=== PATIENT | male | born 1970 | race Caucasian/White ===

== ENCOUNTER 2018-11-25 10:13 | Emergency (ER) | payer OTHER ==
--- NOTE | 2018-11-25 10:47 | EDM.PDOC ---
ED HPI GENERAL MEDICAL PROBLEM - General Chief Complaint: Gastrointestinal Problem Stated Complaint: VOMITING Time Seen by Provider: 11/25/18 10:45 Source of Information: Reports: Patient - History of Present Illness INITIAL COMMENTS - FREE TEXT/NARRATIVE: Patient is here for evaluation of diarrhea x1 week. Patient feels like he should throw up, has had dry heaves. He is unable to vomit due to previous randal fundoplication. Patient states that he does not feel overall ill. He does have diarrhea after every single time that he eats. He has been trying to eat very bland, small portions but this does not change this. Does not have abdominal pain. Denies any fever or chills. Denies any ill contacts. Last week Friday when the symptoms started he did go to a potluck at his 's grandmother's but states nobody else got ill overnight attended in the evening the same things. He has not traveled. He has not had any changes in his diet. Patient has long-standing history of GERD, that is why he had the Christelle fundoplication. History of CAD, hyperlipidemia, hypertension and diabetes as well. Blood sugars have been in the 100-130 range. Patient's primary provider is Vikki Lafleur at the [facility]. Abdomen Pain Score (Numeric/FACES): 4 - Related Data Allergies Allergy/AdvReac Type Severity Reaction Status Date / Time bupropion HCl Allergy itcing Verified 11/25/18 10:34 [From Wellbutrin] doxycycline Allergy itcing Verified 11/25/18 10:34 fenofibrate Allergy Itching Verified 11/25/18 10:34 gemfibrozil Allergy Itching Verified 11/25/18 10:34 lansoprazole [From Prevacid] Allergy Itching Verified 11/25/18 10:34 Penicillins Allergy Hives Verified 11/25/18 10:34 silver sulfadiazine Allergy Itching Verified 11/25/18 10:34 [From Silvadene] venlafaxine Allergy Itching Verified 11/25/18 10:34 zonisamide Allergy Itching Verified 11/25/18 10:34 aquacel Allergy Itching Uncoded 11/25/18 10:34 Home Meds: Home Meds Allopurinol [Zyloprim] 200 mg PO DAILY 04/22/14 [History] Ibuprofen 600 mg PO TID PRN 04/22/14 [History] Insulin Glarg,Human.Rec.Analog [LantUS] 50 unit SQ PCBED 04/22/14 [History] Omeprazole 20 mg PO BID 04/22/14 [History] Tamsulosin [Tamsulosin 24 Hr] 0.4 mg PO BEDTIME 04/22/14 [History] Zolpidem [Ambien] 10 mg PO BEDTIME PRN 04/22/14 [History] metFORMIN [Glucophage] 1,000 mg PO BID 04/22/14 [History] Dicyclomine HCl [Bentyl] 10 mg PO TID PRN 02/18/15 [History] Hydrochlorothiazide/Lisinopril [Lisinopril/HCTZ 20-12.5 MG] 20 mg PO DAILY 02/18 [History] Pregabalin [Lyrica] 100 mg PO BID 02/18/15 [History] Ondansetron [Zofran ODT] 4 mg PO Q8HR PRN 10/23/15 [History] SUMAtriptan succinate [Sumatriptan Succinate] 50 mg PO DAILY 10/23/15 [History] Albuterol Sulfate [Proair Respiclick] 90 mcg INH Q4H PRN 11/25/18 [History] Dulaglutide [Trulicity] 1.5 mg PO DAILY 11/25/18 [History] Lidocaine 5% [Lidoderm 5%] 2 applic TOP DAILY 11/25/18 [History] Metoprolol Succinate [Toprol XL 50mg] 50 mg PO DAILY 11/25/18 [History] Nortriptyline HCl [Pamelor] 50 mg PO DAILY 11/25/18 [History] atorvaSTATin [Lipitor] 40 mg PO DAILY 11/25/18 [History] Past Medical History HEENT History: Reports: Impaired Vision Cardiovascular History: Reports: High Cholesterol, Hypertension, [place] Respiratory History: Reports: Asthma Gastrointestinal History: Reports: GERD Musculoskeletal History: Reports: Gout, Other (See Below) Other Musculoskeletal History: chronic knee pain Neurological History: Reports: Seizure Psychiatric History: Reports: Anxiety Endocrine/Metabolic History: Reports: Diabetes, Type II - Past Surgical History HEENT Surgical History: Reports: Adenoidectomy, Cataract Surgery, Tonsillectomy GI Surgical History: Reports: Cholecystectomy, Other (See Below) Male Surgical History: Reports: Vasectomy Musculoskeletal Surgical History: Reports: Knee Replacement, Other (See Below) Other Musculoskeletal Surgeries/Procedures:: cyst removal left elbow Social & Family History - Family History Family Medical History: Noncontributory - Tobacco Use Smoking Status *Q: Never Smoker Second Hand Smoke Exposure: No - Caffeine Use Caffeine Use: Reports: Soda - Recreational Drug Use Recreational Drug Use: No - Living Situation & Occupation Living situation: Reports: Occupation: Employed ED ROS GENERAL - Review of Systems Review Of Systems: See Below Constitutional: Reports: Decreased Appetite. Denies: Fever, Chills, Weakness, Fatigue HEENT: Reports: No Symptoms Respiratory: Reports: No Symptoms Cardiovascular: Reports: No Symptoms GI/Abdominal: Reports: Diarrhea, Decreased Appetite, Nausea. Denies: Abdominal Pain, Black Stool, Constipation, Hematochezia, Melena, Vomiting : Reports: No Symptoms Musculoskeletal: Reports: No Symptoms Skin: Reports: No Symptoms Neurological: Reports: No Symptoms Psychiatric: Reports: No Symptoms ED EXAM, GI/ABD - Physical Exam Exam: See Below Exam Limited By: No Limitations General Appearance: Alert, WD/WN, No Apparent Distress Ears: Normal External Exam, Normal Canal, Normal TMs Throat/Mouth: Normal Inspection, Normal Lips, Normal Oropharynx Head: Atraumatic, Normocephalic Neck: Normal Inspection, Supple, Non-Tender Respiratory/Chest: No Respiratory Distress, Lungs Clear, Normal Breath Sounds Cardiovascular: Normal Peripheral Pulses, Regular Rate, Rhythm, No Murmur GI/Abdominal Exam: Normal Bowel Sounds, Soft, Tender (Mild RLQ/LLQ tenderness). No: Distended, Guarding, Rigid, Abnormal Bowel Sounds Neurological: Alert, Oriented Psychiatric: Normal Affect, Normal Mood Skin Exam: Warm, Dry, Intact Lymphatic: No Adenopathy Course - Vital Signs Last Recorded V/S: Last Vital Signs Temp 98.4 F 11/25/18 10:29 Pulse 75 11/25/18 10:29 Resp 16 11/25/18 10:29 BP 145/87 H 11/25/18 10:29 Pulse Ox 97 11/25/18 10:29 - Orders/Labs/Meds Orders: Active Orders 24 hr Category Date Time Status CULTURE STOOL + SHIGATOX [RM] Stat Lab 11/25/18 12:49 Received Sodium Chloride 0.9% [Normal Saline] 1,000 ml Med 11/25/18 13:58 Active IV ONETIME Medication Orders Sodium Chloride (Normal Saline) 1,000 mls @ 250 mls/hr IV ONETIME ONE Stop: 11/25/18 17:57 Last Admin: 11/25/18 14:10 Dose: 250 mls/hr Labs: Laboratory Tests 11/25/18 11/25/18 11/25/18 Range/Units 11:30 11:30 11:30 WBC 6.14 (4.23-9.07) K/mm3 RBC 4.43 L (4.63-6.08) M/mm3 Hgb 13.2 L (13.7-17.5) gm/L Hct 39.3 L (40.1-51.0) % MCV 88.7 (79.0-92.2) fl MCH 29.8 (25.7-32.2) pg MCHC 33.6 (32.2-35.5) g/dl RDW Std Deviation 47.6 H (35.1-43.9) fL Plt Count 214 (163-337) K/mm3 MPV 11.4 (9.4-12.3) fl Neutrophils % (Manual) 50 (40-60) % Band Neutrophils % 0 (0-10) % Lymphocytes % (Manual) 41 H (20-40) % Atypical Lymphs % 0 % Monocytes % (Manual) 7 (2-10) % Eosinophils % (Manual) 1 (0.8-7.0) % Basophils % (Manual) 1 (0.2-1.2) Platelet Estimate Adequate Anisocytosis 2+ moderate Microcytosis 1+ slight RBC Morph Comment Abnormal Sodium 142 (136-145) mEq/L Potassium 4.1 (3.5-5.1) mEq/L Chloride 104 (98-107) mEq/L Carbon Dioxide 27 (21-32) mEq/L Anion Gap 15.1 H (5-15) BUN 13 (7-18) mg/dL Creatinine 1.3 (0.7-1.3) mg/dL Est Cr Clr Drug Dosing 68.74 mL/min Estimated GFR (MDRD) 59 (>60) mL/min BUN/Creatinine Ratio 10.0 L (14-18) Glucose 114 H (74-106) mg/dL Calcium 9.7 (8.5-10.1) mg/dL Magnesium 1.5 L (1.8-2.4) mg/dl Total Bilirubin 0.9 (0.2-1.0) mg/dL AST 30 (15-37) U/L ALT 63 (16-63) U/L Alkaline Phosphatase 98 (46-116) U/L C-Reactive Protein 0.8 (<1.0) mg/dL Total Protein 7.4 (6.4-8.2) g/dl Albumin 3.8 (3.4-5.0) g/dl Globulin 3.6 gm/dL Albumin/Globulin Ratio 1.1 (1-2) Lipase 87 (73-393) U/L Urine Color (Yellow) Urine Appearance (Clear) Urine pH (5.0-8.0) Ur Specific [place] (1.005-1.030) Urine Protein (Negative) Urine Glucose (UA) (Negative) Urine Ketones (Negative) Urine Occult Blood (Negative) Urine Nitrite (Negative) Urine Bilirubin (Negative) Urine Urobilinogen (0.2-1.0) Ur Leukocyte Esterase (Negative) Urine RBC (0-5) /hpf Urine WBC (0-5) /hpf Ur Epithelial Cells (0-5) /hpf Urine Bacteria (FEW) /hpf Hyaline Casts (0-5) /lpf Urine Mucus (FEW) /hpf 11/25/18 Range/Units 12:05 WBC (4.23-9.07) K/mm3 RBC (4.63-6.08) M/mm3 Hgb (13.7-17.5) gm/L Hct (40.1-51.0) % MCV (79.0-92.2) fl MCH (25.7-32.2) pg MCHC (32.2-35.5) g/dl RDW Std Deviation (35.1-43.9) fL Plt Count (163-337) K/mm3 MPV (9.4-12.3) fl Neutrophils % (Manual) (40-60) % Band Neutrophils % (0-10) % Lymphocytes % (Manual) (20-40) % Atypical Lymphs % % Monocytes % (Manual) (2-10) % Eosinophils % (Manual) (0.8-7.0) % Basophils % (Manual) (0.2-1.2) Platelet Estimate Anisocytosis Microcytosis RBC Morph Comment Sodium (136-145) mEq/L Potassium (3.5-5.1) mEq/L Chloride (98-107) mEq/L Carbon Dioxide (21-32) mEq/L Anion Gap (5-15) BUN (7-18) mg/dL Creatinine (0.7-1.3) mg/dL Est Cr Clr Drug Dosing mL/min Estimated GFR (MDRD) (>60) mL/min BUN/Creatinine Ratio (14-18) Glucose (74-106) mg/dL Calcium (8.5-10.1) mg/dL Magnesium (1.8-2.4) mg/dl Total Bilirubin (0.2-1.0) mg/dL AST (15-37) U/L ALT (16-63) U/L Alkaline Phosphatase (46-116) U/L C-Reactive Protein (<1.0) mg/dL Total Protein (6.4-8.2) g/dl Albumin (3.4-5.0) g/dl Globulin gm/dL Albumin/Globulin Ratio (1-2) Lipase (73-393) U/L Urine Color Dark yellow (Yellow) Urine Appearance Clear (Clear) Urine pH 6.0 (5.0-8.0) Ur Specific [place] 1.025 (1.005-1.030) Urine Protein 1+ H (Negative) Urine Glucose (UA) Negative (Negative) Urine Ketones Trace H (Negative) Urine Occult Blood Negative (Negative) Urine Nitrite Negative (Negative) Urine Bilirubin 1+ H (Negative) Urine Urobilinogen 1.0 (0.2-1.0) Ur Leukocyte Esterase Negative (Negative) Urine RBC 0-5 (0-5) /hpf Urine WBC 0-5 (0-5) /hpf Ur Epithelial Cells 0-5 (0-5) /hpf Urine Bacteria Few (FEW) /hpf Hyaline Casts 10-20 H (0-5) /lpf Urine Mucus Many H (FEW) /hpf Meds: Medications Generic Name Dose Route Start Last Admin Trade Name Freq PRN Reason Stop Dose Admin Sodium Chloride 1,000 mls @ 250 mls/hr 11/25/18 13:58 11/25/18 14:10 Normal Saline IV 11/25/18 17:57 250 mls/hr ONETIME ONE Administration Discontinued Medications Generic Name Dose Route Start Last Admin Trade Name Freq PRN Reason Stop Dose Admin Diatrizoate Meglum/Diatrizoate Sod 90 ml 11/25/18 12:42 11/25/18 13:49 Gastrografin 37% PO 11/25/18 12:43 90 ml ONETIME ONE Administration Diphenhydramine HCl 50 mg 11/25/18 11:04 11/25/18 11:42 Benadryl IVPUSH 11/25/18 11:05 50 mg ONETIME ONE Administration Sodium Chloride 1,000 mls @ 999 mls/hr 11/25/18 11:06 11/25/18 11:44 Normal Saline IV 11/25/18 12:06 999 mls/hr ONETIME ONE Administration Iopamidol 100 ml 11/25/18 12:42 11/25/18 13:49 Isovue-300 (61%) IVPUSH 11/25/18 12:43 100 ml ONETIME ONE Administration Metoclopramide HCl 5 mg 11/25/18 11:03 11/25/18 11:40 Reglan IVPUSH 11/25/18 11:04 5 mg ONETIME ONE Administration Sodium Chloride 10 ml 11/25/18 12:42 11/25/18 13:49 Saline Flush FLUSH 11/25/18 12:43 10 ml ONETIME ONE Administration - Re-Assessments/Exams Free Text/Narrative Re-Assessment/Exam: Patient had improvement of his abdominal pain with Reglan and Benadryl. This was given as he had 30 taken Zofran at home. WBC 6140. Hemoglobin mildly low at 13.2. Anion gap is 15.1. Glucose 114. Magnesium low at 1.5. 11/25/18 14:19 CT of the abdomen and pelvis demonstrates no acute findings. Appendix is visualized and normal. Patient is on a second liter of IV fluids and feeling markedly better. He is going to try a few crackers and some apple juice. 11/25/18 15:08 Patient actually feels better after having cracker and the apple juice. He'll be discharged home, follow BRAT diet Maximize fluid intake. He will hold his metformin for 3 days. He will take an [id number] magnesium supplement. He will follow-up with his primary provider next few days or return to the emergency room for any new or worsening symptoms. 11/25/18 15:16 Departure - Departure Time of Disposition: 15:17 Disposition: Home, Self-Care 01 Condition: Good Clinical Impression: Low magnesium level Diarrhea Qualifiers: Diarrhea type: unspecified type Qualified Code(s): R19.7 - Diarrhea, unspecified - Discharge Information Instructions: Diarrhea, Adult, Dehydration, Adult, [id number], Diet for Irritable Bowel Syndrome Referrals: Vikki Lafleur RIV[facility]CKER [Primary Care Provider] - Forms: ED Department Discharge Additional Instructions: You were evaluated in the emergency department today for diarrhea that was persistent. Stool culture and lab work showed no infectious cause of this. CT scan demonstrated no concerning findings. He was given some IV dye with your CT scan, so hold your metformin for the next 3 days I recommend that you follow a very bland diet, try to maximize your fluid intake. You can continue to take the Imodium as needed. Your magnesium level did get a bit low with not eating much, I recommend that he take an [id number] magnesium supplement. Follow-up with your primary provider within the next few days or return to emergency room for any new or worsening symptoms. - My Orders Last 24 Hours: My Active Orders 11/25/18 12:49 CULTURE STOOL + SHIGATOX [RM] Stat 11/25/18 13:58 Sodium Chloride 0.9% [Normal Saline] 1,000 ml IV ONETIME - Assessment/Plan Last 24 Hours: My Active Orders 11/25/18 12:49 CULTURE STOOL + SHIGATOX [RM] Stat 11/25/18 13:58 Sodium Chloride 0.9% [Normal Saline] 1,000 ml IV ONETIME
[2018-11-25] MEDS ORDERED: Metoclopramide 10 MG/2 ML SDV IVPUSH ONE (11:03)
[2018-11-25] MEDS ORDERED: diphenhydrAMINE 50 MG/ML SDV IVPUSH ONE (11:04)
[2018-11-25] MEDS ORDERED: Sodium Chloride 0.9% 1,000 ML IV ONE ×2 (11:06→13:58)
[2018-11-25] MEDS ORDERED: Diatrizoate Meglumine/Diatrizoate Sodium 37% 120 ML Bottle PO ONE (12:42)
[2018-11-25] MEDS ORDERED: Sodium Chloride 0.9% 10 ML Syringe FLUSH ONE (12:42)
[2018-11-25] MEDS ORDERED: Iopamidol 612 MG/ML 100 ML Bottle IVPUSH ONE (12:42)
--- NOTE | 2018-11-25 14:45 | CT ---
CT abdomen and pelvis Technique: Multiple axial sections were obtained from above the dome of the diaphragm inferiorly through the pubic symphysis. Intravenous and oral contrast was utilized. Oral contrast remains within the proximal small bowel. Comparison: Prior CT abdomen and pelvis exam of 04/22/14. Findings: Small portion of the visualized lung bases show nothing acute. Liver contains no focal abnormality. Spleen appears within normal limits. Surgical clips are seen between the spleen and stomach. Pancreas appears without discrete abnormality. Surgical clips are seen from prior cholecystectomy. Adrenal glands appear without nodule. Kidneys show symmetric contrast enhancement without hydronephrosis or mass. Aorta shows atherosclerotic change which continues into the iliac vessels without aneurysm. No retroperitoneal adenopathy or mesenteric abnormalities are seen. Appendix is seen which is normal. No pelvic mass or adenopathy is seen. Small fat-containing inguinal hernias are seen on both sides. Delayed images show contrast within the distal ureters and bladder. Bone window settings were reviewed which shows disc space narrowing and vacuum phenomena within the L5-S1 disc. Slight degenerative apophyseal change is noted within the lower lumbar spine. Prominent anterior osteophytes are seen at T8-T9. Impression: 1. Incidental findings as noted above. Nothing acute is appreciated on CT study of the abdomen and pelvis. Diagnostic code #2
[2018-11-25 15:50] VITALS: BP 146/95
== END 2018-11-25 15:47 | disposition home or self-care (01) ==
LOC: JD.ED 10:13
DX: R19.7 Diarrhea, unspecified (principal); E11.9 Type 2 diabetes mellitus without complications; E83.42 Hypomagnesemia; E78.00 Pure hypercholesterolemia, unspecified; I10 Essential (primary) hypertension; I25.2 Old myocardial infarction; K21.9 Gastro-esophageal reflux disease without esophagitis; J45.909 Unspecified asthma, uncomplicated; Z88.8 Allergy status to other drugs, medicaments and biological substances; Z88.0 Allergy status to penicillin; Z79.899 Other long term (current) drug therapy; Z79.4 Long term (current) use of insulin
CPT/HCPCS: 36415; 74177; 80053; 81001; 83690; 83735; 85007; 85027; 86140; 87046; 87338; 87427; 89055; 96361; 96374; 96375; 99284; J1200; J2765; J7040; Q9963; Q9967

== ENCOUNTER 2020-08-21 08:44 | Day surgery (SDC) | payer OTHER ==
[~2020-08-21 08:44] MED LIST: Lactated Ringers 1,000 ML IV SCH; Lidocaine 1%/Sod Bicarbonate in NS 8.4% 1 ML Syringe IDERM PRN; Sodium Chloride 0.9% 10 ML Syringe FLUSH PRN
--- NOTE | 2020-08-21 09:19 | PCM.PREANE ---
Preanesthetic Assessment - Procedure Proposed Procedure: egd and colonoscopy - Anesthesia/Transfusion/Family Hx Anesthesia History: Prior Anesthesia Without Reaction Family History of Anesthesia Reaction: No Transfusion History: No Prior Transfusion(s) - Review of Systems General: No Symptoms Pulmonary: No Symptoms Cardiovascular: Chest Pain (chest pain for 5 years- had stress test friday- was good per patient), Dyspnea on Exertion Gastrointestinal: No Symptoms Neurological: Seizure (none in 10 years), Difficulty Walking (feet burn and hurt- diabetic) Other: Reports: Diabetes, Thyroid Problems, Anxiety - Physical Assessment NPO Status Date: 08/20/20 NPO Status Time: 22:00 Vital Signs: 147/80 66 97% 20 98.1 Height: 5 ft 9 in Weight: 135 kg ASA Class: 3 Mental Status: Alert & Oriented x3 Airway Class: Mallampati = 2 Dentition: Reports: Normal Dentition Thyro-Mental Finger Breadths: 2 Mouth Opening Finger Breadths: 3 ROM/Head Extension: Full Lungs: Clear to Auscultation, Normal Respiratory Effort Cardiovascular: Regular Rate, Regular Rhythm - Allergies Allergies/Adverse Reactions: Allergies Allergy/AdvReac Type Severity Reaction Status Date / Time acetaminophen [From [place]] Allergy Cannot Verified 08/17/20 18:56 Remember adhesive Allergy Cannot Verified 08/17/20 18:56 Remember bacitracin Allergy Cannot Verified 08/17/20 18:56 [From Neosporin Remember ([id number])] bupropion HCl Allergy itcing Verified 08/17/20 18:56 [From Wellbutrin] doxycycline Allergy itcing Verified 08/17/20 18:56 fenofibrate Allergy Itching Verified 08/17/20 18:56 gemfibrozil Allergy Itching Verified 08/17/20 18:56 hydrocodone [From [place]] Allergy Cannot Verified 08/17/20 18:56 Remember lansoprazole [From Prevacid] Allergy Itching Verified 08/17/20 18:56 neomycin Allergy Cannot Verified 08/17/20 18:56 [From Neosporin Remember ([id number])] Penicillins Allergy Hives Verified 08/17/20 18:56 polymyxin B Allergy Cannot Verified 08/17/20 18:56 [From Neosporin Remember ([id number])] silver sulfadiazine Allergy Itching Verified 08/17/20 18:56 [From Silvadene] venlafaxine Allergy Itching Verified 08/17/20 18:56 zonisamide Allergy Itching Verified 08/17/20 18:56 aquacel Allergy Itching Uncoded 08/17/20 18:56 - Blood Blood Available: No - Anesthesia Plan Beta Maribeth: Metoprolol Med Last Dose Date: 08/20/20 Med Last Dose Time: 19:00 - Acknowledgements Anesthesia Type Planned: MAC Pt an Appropriate Candidate for the Planned Anesthesia: Yes Alternatives and Risks of Anesthesia Discussed w Pt/Guardian: Yes Pt/Guardian Understands and Agrees with Anesthesia Plan: Yes PreAnesthesia Questionnaire HEENT History: Reports: Cataract, Impaired Vision Cardiovascular History: Reports: High Cholesterol, Hypertension, [place], Other (See Below) Other Cardiovascular History: diastolic dysfunction Respiratory History: Reports: Asthma, Sleep Apnea, SOB Gastrointestinal History: Reports: GERD, Irritable Bowel Syndrome Genitourinary History: Reports: None [employer] DEC[employer] History: Reports: None Musculoskeletal History: Reports: Arthritis, Fibromyalgia, Gout, Other (See Below) Other Musculoskeletal History: chronic knee pain Neurological History: Reports: Migraines, Neuropathy, Diabetic, Neuropathy, Peripheral, Seizure Psychiatric History: Reports: Anxiety, Depression Endocrine/Metabolic History: Reports: Diabetes, Type II Hematologic History: Reports: None Immunologic History: Reports: None Oncologic (Cancer) History: Reports: None Dermatologic History: Reports: Other (See Below) Other Dermatologic History: dermatomyositis - Past Surgical History Head Surgeries/Procedures: Reports: None HEENT Surgical History: Reports: Adenoidectomy, Cataract Surgery, Tonsillectomy Cardiovascular Surgical History: Reports: None Respiratory Surgical History: Reports: None GI Surgical History: Reports: Cholecystectomy, Colonoscopy, EGD, Christelle Fundoplication, Other (See Below) Male Surgical History: Reports: Vasectomy Endocrine Surgical History: Reports: None Neurological Surgical History: Reports: None Musculoskeletal Surgical History: Reports: Arthroscopic Knee, Carpal Tunnel, Other (See Below) Other Musculoskeletal Surgeries/Procedures:: cyst removal left elbow Oncologic Surgical History: Reports: None Dermatological Surgical History: Reports: None - SUBSTANCE USE Tobacco Use Status *Q: Former Tobacco User Tobacco Use Within Last Twelve Months: No Second Hand Smoke Exposure: No Days Per Week of Alcohol Use: 0 Recreational Drug Use History: No - HOME MEDS Home Medications: Home Meds Insulin Glarg,Human.Rec.Analog [LantUS] 40 unit SQ BEDTIME 04/22/14 [History] allopurinoL [Zyloprim] 100 mg PO DAILY 04/22/14 [History] SUMAtriptan succinate [Sumatriptan Succinate] 50 mg PO ASDIRECTED PRN 10/23/15 [History] Albuterol Sulfate [Proair Respiclick] 2 puff INH Q4H PRN 11/25/18 [History] Dulaglutide [Trulicity] 1.5 mg PO WOODS 11/25/18 [History] Lidocaine 5% [Lidoderm 5%] 1 patch TOP ASDIRECTED PRN 11/25/18 [History] Metoprolol Succinate [Toprol XL 50mg] 50 mg PO BEDTIME 11/25/18 [History] Nortriptyline HCl [Pamelor] 100 mg PO BEDTIME 11/25/18 [History] atorvaSTATin [Lipitor] 40 mg PO DAILY 11/25/18 [History] Acetaminophen [Tylenol] 650 mg PO Q6H PRN 08/17/20 [History] Acetaminophen/oxyCODONE [Percocet 325-5 MG] 1 - 2 tab PO Q4HR PRN 08/17/20 [History] Aspirin 81 mg PO DAILY 08/17/20 [History] Cholecalciferol (Vitamin D3) [Vitamin D3] 2,000 unit PO BID 08/17/20 [History] DULoxetine [Cymbalta] 30 mg PO BEDTIME 08/17/20 [History] Diclofenac Sodium [Voltaren 1% Gel] 1 dose TOP BID 08/17/20 [History] Empagliflozin [Jardiance] 25 mg PO DAILY 08/17/20 [History] Esomeprazole [NexIUM] 20 mg PO QAM 08/17/20 [History] Famotidine [Pepcid] 20 mg PO BID 08/17/20 [History] Ferrous Sulfate [Iron] 325 mg PO DAILY 08/17/20 [History] Krill/Om-3/DHA/EPA/Phospho/Ast [Krill Oil 1,000 mg Softgel] 1 cap PO DAILY 08/17/20 [History] L.acidoph,Paracasei, B.lactis [Probiotic] 2 cap PO DAILY 08/17/20 [History] Levothyroxine Sodium [Synthroid] 25 mcg PO DAILY 08/17/20 [History] Nabumetone [Relafen] 500 mg PO QID PRN 08/17/20 [History] Pregabalin [Lyrica] 300 mg PO BID 08/17/20 [History] Psyllium Husk (With Sugar) [Metamucil Free Powder] 1 dose PO DAILY PRN 08/17/20 [History] Tamsulosin [Flomax] 0.4 mg PO DAILY 08/17/20 [History] Zolpidem [Ambien] 5 mg PO BEDTIME PRN 08/17/20 [History] lisinopriL [Lisinopril] 19 mg PO DAILY 08/17/20 [History] metFORMIN [Glucophage XR] 500 mg PO QID 08/17/20 [History] - CURRENT (IN HOUSE) MEDS Current Meds: Current Medications Lactated Ringer's (Ringers, Lactated) 1,000 mls @ 125 mls/hr IV ASDIRECTED [place] Stop: 08/21/20 23:00 Lidocaine/Sodium Bicarbonate (Buffered Lidocaine 1% In Ns 8.4%) 0.25 ml IDERM ONETIME PRN PRN Reason: Prior to IV Start Stop: 08/21/20 18:00 Sodium Chloride (Saline Flush) 10 ml FLUSH ASDIRECTED PRN PRN Reason: Keep Vein Open Stop: 08/21/20 18:00
[2020-08-21] MEDS ORDERED: Propofol 200 MG/20 ML SDV ONE ×5 (09:46→12:13)
[2020-08-21] MEDS ORDERED: fentaNYL 100 MCG/2 ML SDV ONE ×2 (09:47→11:32)
[2020-08-21] MEDS ORDERED: Lidocaine 1% 4 ML ONE (09:47)
--- NOTE | 2020-08-21 11:10 | PCM48HPAN ---
Post Anesthesia Note - EVALUATION WITHIN 48HRS OF ANESTHETIC Vital Signs in Normal Range: Yes Patient Participated in Evaluation: Yes Respiratory Function Stable: Yes Airway Patent: Yes Cardiovascular Function Stable: Yes Hydration Status Stable: Yes Pain Control Satisfactory: Yes Nausea and Vomiting Control Satisfactory: Yes Mental Status Recovered: Yes Vital Signs: Last Vital Signs Temp 36.7 C 08/21/20 08:52 Pulse 66 08/21/20 08:52 Resp 20 08/21/20 08:52 BP 147/80 H 08/21/20 08:52 Pulse Ox 97 08/21/20 08:52
[2020-08-21] MEDS ORDERED: Lactated Ringers 0 ML ONE (12:05)
[2020-08-21] MEDS ORDERED: Ondansetron 4 MG/2 ML SDV ONE (12:07)
[2020-08-21 12:22] VITALS: BP 140/74; PULSE 71
--- NOTE | 2020-08-21 13:44 | PROC ---
DATE OF OPERATION: 08/21/2020 SURGEON: Sarah Nj MD PREOPERATIVE DIAGNOSES: 1. Long-standing gastroesophageal reflux disease. 2. Abdominal pain and chronic constipation. POSTOPERATIVE DIAGNOSES: 1. Few small diverticuli and hemorrhoid colon. 2. Esophageal plaques, duodenal lesion, antrum polyps, antritis, and intact Christelle fundoplication. PROCEDURE: 1. Esophagogastroduodenoscopy. 2. Colonoscopy. ESTIMATED BLOOD LOSS: Minimal. ANESTHESIA: Monitored anesthesia care. COMPLICATIONS: None. INDICATION AND CONSENT: Mr. Loredo is a 49-year-old male who presented to clinic for evaluation for long- standing GERD as well as some mild abdominal pain in the lower abdomen. The patient has chronic constipation and currently using Metamucil daily. I talked to the patient, who is also 49-year-old, and I recommended that we proceed with an EGD and colonoscopy to evaluate for his GERD as well as his colon. We discussed risks, benefits, and alternatives and informed consent was obtained. DESCRIPTION OF PROCEDURE: The patient was met in the preop area. He was doing fine, was then taken to the procedure room, placed in left lateral decubitus position. Bite block was placed, was padded appropriately, and time-out was performed. Then, monitored anesthesia care was induced. We began with an EGD. Scope was placed into the mouth and taken all the way to the second portion of duodenum. At the end of the first portion duodenum, there was a 5-mm lesion with a centrally located 2- mm area of redness, almost resembling an ulcer or ectasias. The rest of the duodenum appeared completely normal. Because of this, we biopsied this lesion and it started to ooze; therefore, 1 clip was applied to stop the oozing, which was successful. Then, we withdrew the scope back into the stomach. In the antrum, there were 4 polyps ranging from 3 mm to 5 mm in size. There was also mild diffuse inflammation of the antrum. The polyps were removed with hot snare and sent for pathologic examination, and we took some biopsies of the antrum for histologic examination, H. pylori studies. On retroflexion, the patient appeared to have evidence of intact Christelle fundoplication. There was no areas of inflammation. Then, we withdrew the scope into the esophagus. There appeared to be mild esophagitis. Distal esophagus was biopsied. We went back to the mid esophagus. There were areas covered with white plaque sitting next to a normal-appearing esophageal mucosa. This area in the mid esophagus was biopsied for histologic examination, and then, we went back into the stomach. Air was suctioned out, and the scope was withdrawn. Then, at this point, we turned our attention to the colonoscopy. On perianal exam, there was grade 3 internal hemorrhoid in the left lateral position. Digital rectal exam was normal. The scope was placed and taken all the way to the cecum. Appendiceal orifice was photographed as well as ileocecal valve. Prep was adequate for identification of polyps. There were areas in the hepatic flexure as well as the cecum that had liquid stool. These were copiously irrigated and cleaned out completely for examination. The cecum was normal. The ascending colon and the entirety of the colonic mucosa was normal. There were no polyps. The distal descending colon had few small diverticulosis. On retroflexion in the rectum, there were no abnormalities. Air was suctioned out and scope was removed. RECOMMENDATIONS: The patient has a lesion in the duodenum, antral polyps, as well as antritis, and mild esophagitis. Biopsies were taken and will be evaluated in his followup. The esophagus of the patient also had white plaques, biopsies were taken. The colonoscopy was normal. The patient is advised to take a high-fiber diet and return for another screening colonoscopy in 10 years. MMEVELYN /[id number] GERONIMO
== END 2020-08-21 11:55 | disposition home or self-care (01) ==
LOC: JD.SDS 08:44
PROVIDERS: ATTEND Surgery
DX: K57.30 Diverticulosis of large intestine without perforation or abscess without bleeding (principal); K29.50 Unspecified chronic gastritis without bleeding; K31.7 Polyp of stomach and duodenum; K59.09 Other constipation; K22.2 Esophageal obstruction; K21.00 Gastro-esophageal reflux disease with esophagitis, without bleeding; K64.2 Third degree hemorrhoids; J45.909 Unspecified asthma, uncomplicated; F32.9 Major depressive disorder, single episode, unspecified; E78.5 Hyperlipidemia, unspecified; E11.40 Type 2 diabetes mellitus with diabetic neuropathy, unspecified; G47.33 Obstructive sleep apnea (adult) (pediatric); Z88.8 Allergy status to other drugs, medicaments and biological substances; Z91.048 Other nonmedicinal substance allergy status; Z87.891 Personal history of nicotine dependence; Z98.84 Bariatric surgery status; Z98.890 Other specified postprocedural states; Z79.899 Other long term (current) drug therapy; Z79.84 Long term (current) use of oral hypoglycemic drugs; Z88.0 Allergy status to penicillin
CPT/HCPCS: 43239; 43251; 45378; J2001; J2704; J3010; J7120; 00813; J2405

== ENCOUNTER 2022-10-02 08:07 | Emergency (ER) | payer OTHER ==
[2022-10-02] MEDS ORDERED: HYDROmorphone 1 MG/ML Syringe IM ONE (08:40)
[2022-10-02] MEDS ORDERED: Ketorolac 60 MG/2 ML SDV IM ONE (08:40)
[2022-10-02] MEDS ORDERED: Cyclobenzaprine 10 MG Tab PO ONE (08:41)
[2022-10-02 10:00] VITALS: BP 138/89; PULSE 78
== END 2022-10-02 10:00 | disposition home or self-care (01) ==
LOC: JD.ED 08:07
DX: M54.42 Lumbago with sciatica, left side (principal); E78.00 Pure hypercholesterolemia, unspecified; I10 Essential (primary) hypertension; I25.2 Old myocardial infarction; E11.9 Type 2 diabetes mellitus without complications; Z88.6 Allergy status to analgesic agent; Z88.1 Allergy status to other antibiotic agents; Z88.5 Allergy status to narcotic agent; Z88.0 Allergy status to penicillin; Z88.8 Allergy status to other drugs, medicaments and biological substances; Z79.899 Other long term (current) drug therapy; Z79.82 Long term (current) use of aspirin; Z79.84 Long term (current) use of oral hypoglycemic drugs; Z90.49 Acquired absence of other specified parts of digestive tract
CPT/HCPCS: 72100; 96372; 99283; A9270; J1170; J1885